=== PATIENT | female | born 1970 | race Caucasian/White ===

== ENCOUNTER 2017-05-21 18:04 | Emergency (ER) | payer OTHER ==
[2017-05-21] MEDS: IBUPROFEN 600 MG TAB PO (19:58)
== END 2017-05-21 20:43 | disposition home or self-care (01) ==
LOC: FTE 18:04
DX: M79.602 Pain in left arm (principal)
CPT/HCPCS: 73060; 99283-25

== ENCOUNTER 2017-06-09 04:04 | Emergency (ER) | payer OTHER | END 2017-06-09 07:25 | disposition home or self-care (01) | LOC: FTE 04:04 | DX: H61.21 Impacted cerumen, right ear (principal) | CPT/HCPCS: 99283 ==

== ENCOUNTER 2018-05-29 16:14 | Emergency (ER) | payer OTHER ==
[2018-05-29 18:11] LABS: ADD MAN DIFF? NO
[2018-05-29] MEDS: ONDANSETRON 4 MG INJ IV (18:11)
[2018-05-29] MEDS: morphine 4 MG/ML VIAL IV (18:11)
[2018-05-29] MEDS: SOD CHLORIDE 0.9% 1,000 ML IV (18:11)
[2018-05-29 18:14] LABS: ABNORMAL IP MESSAGE 1; BASOPHILS % 0.3 % (0.0-2.0); HEMATOCRIT 39.5 % (37.0-47.0); HEMOGLOBIN 13.9 g/dl (12.0-16.0); LYMPHOCYTES # 0.4 10^3/ul (0.8-2.9); LYMPHOCYTES % 2.9 % (15.0-51.0); MEAN CORPUSCULAR HEMOGLOBIN 31.7 pg (29.0-33.0); MEAN CORPUSCULAR HGB CONC 35.2 g/dl (32.0-37.0); MONOCYTE # 0.5 10^3/ul (0.3-0.9); MONOCYTES % 3.3 % (0.0-11.0); NEUTROPHIL # 13.1 10^3/ul (1.6-7.5); NEUTROPHILS % 93.1 % (39.0-77.0); PLATELET COUNT 285 10^3/UL (140-415); RED BLOOD COUNT 4.39 10^6/ul (4.20-5.40); RED CELL DISTRIBUTION WIDTH 11.9 % (11.5-14.5)
[2018-05-29] MEDS: HYDROmorphONE 0.5 MG/0.5 ML SYG IV (18:31)
[2018-05-29 18:33] LABS: POSITIVE DIFF @See below
[2018-05-29 18:35] LABS: ALANINE AMINOTRANSFERASE 16 IU/L (13-69); ALBUMIN/GLOBULIN RATIO 1.35; ALKALINE PHOSPHATASE 54 IU/L (42-121); ANION GAP 12 (5-13); ASPARTATE AMINO TRANSFERASE 26 IU/L (15-46); BILIRUBIN,INDIRECT 1.3 mg/dl (0-1.1); BILIRUBIN,TOTAL 1.3 mg/dl (0.2-1.3); BLOOD UREA NITROGEN 14 mg/dl (7-20); CALCIUM 9.9 mg/dl (8.4-10.2); CARBON DIOXIDE 25 mmol/L (21-31); CHLORIDE 107 mmol/L (97-110); CREATININE 0.58 mg/dl (0.44-1.00); Estimated GFR > 60 mL/min (>60); GLUCOSE 127 mg/dl (70-220); LIPASE 52 U/L (23-300); SODIUM 144 mmol/L (135-144); TOTAL PROTEIN 8.7 g/dl (6.1-8.1)
[2018-05-29 19:01] LABS: ADD UMIC YES; UR AMORPHOUS CRYSTAL MANY /HPF (NONE SEEN); UR ASCORBIC ACID NEGATIVE (NEGATIVE); UR BACTERIA FEW /HPF (NONE SEEN); UR BILIRUBIN (Dip) NEGATIVE (NEGATIVE); UR BLOOD (Dip) 2+ mg/dL (NEGATIVE); UR CLARITY CLOUDY (CLEAR); UR COLOR YELLOW (YELLOW); UR GLUCOSE (Dip) NEGATIVE (NEGATIVE); UR KETONES (Dip) 2+ mg/dL (NEGATIVE); UR LEUKOCYTE ESTERASE (Dip) 1+ Leu/ul (NEGATIVE); UR NITRITE (Dip) NEGATIVE (NEGATIVE); UR RBC 77 /HPF (0-5); UR SPECIFIC GRAVITY (Dip) 1.013 (1.003-1.030); UR SQUAMOUS EPITHELIAL CELL FEW /HPF (FEW); UR TOTAL PROTEIN (Dip) NEGATIVE (NEGATIVE); UR UROBILINOGEN (Dip) NEGATIVE (NEGATIVE); UR WBC 10 /HPF (0-5)
[2018-05-29] MEDS: CEFTRIAXONE 1 GM/50 ML (PMX) 50 ML IVPB (19:47)
== END 2018-05-29 20:35 | disposition home or self-care (01) ==
LOC: E/R 16:14
DX: N20.0 Calculus of kidney (principal); R40.2252 Coma scale, best verbal response, oriented, at arrival to emergency department; R40.2362 Coma scale, best motor response, obeys commands, at arrival to emergency department; R40.2142 Coma scale, eyes open, spontaneous, at arrival to emergency department; N23 Unspecified renal colic
CPT/HCPCS: 36415; 74176; 80053; 81001; 83690; 84703; 85025; 87086; 93005; 96374; 96375; 99285-25

== ENCOUNTER 2018-09-30 22:16 | Emergency (ER) | payer OTHER ==
[2018-09-30 23:35] LABS: ADD UMIC YES; UR ASCORBIC ACID NEGATIVE (NEGATIVE); UR BILIRUBIN (Dip) NEGATIVE (NEGATIVE); UR BLOOD (Dip) 1+ mg/dL (NEGATIVE); UR CLARITY CLEAR (CLEAR); UR COLOR STRAW (YELLOW); UR GLUCOSE (Dip) NEGATIVE (NEGATIVE); UR KETONES (Dip) NEGATIVE (NEGATIVE); UR LEUKOCYTE ESTERASE (Dip) NEGATIVE Leu/ul (NEGATIVE); UR NITRITE (Dip) NEGATIVE (NEGATIVE); UR RBC 27 /HPF (0-5); UR SPECIFIC GRAVITY (Dip) 1.014 (1.003-1.030); UR TOTAL PROTEIN (Dip) NEGATIVE (NEGATIVE); UR UROBILINOGEN (Dip) NEGATIVE (NEGATIVE); UR WBC 2 /HPF (0-5)
== END 2018-10-01 00:31 | disposition home or self-care (01) ==
LOC: FTE 10-01 00:31
DX: K64.9 Unspecified hemorrhoids (principal)
CPT/HCPCS: 81001; 81025; 99284

== ENCOUNTER 2018-10-18 10:28 | Day surgery (SDC) | payer OTHER ==
[2018-10-18] MEDS ORDERED: IOHEXOL 300MG/ML 30 ML BTL (12:24)
[2018-10-18] MEDS ORDERED: PROPOFOL 100 ML (12:27)
[2018-10-18] MEDS ORDERED: LIDOCAINE 2% (SDV) 5 ML INJ (12:31)
[2018-10-18] MEDS ORDERED: FENTAnyl 50 MCG/ML VIAL (12:31)
[2018-10-18] MEDS ORDERED: ROCURONIUM 50 MG INJ (12:31)
[2018-10-18] MEDS ORDERED: CEFAZOLIN 1 GM INJ (12:59)
[2018-10-18] MEDS ORDERED: DEXAMETHASONE 4 MG/ML 5 ML INJ (13:04)
[2018-10-18] MEDS ORDERED: ONDANSETRON 4 MG INJ (13:04)
[2018-10-18] MEDS ORDERED: NEOSTIGMINE 3 MG/3 ML SYRINGE (13:43)
[2018-10-18] MEDS ORDERED: GLYCOPYRROLATE 0.4 MG INJ (13:43)
[2018-10-18] MEDS ORDERED: hydrALAzine 20 MG INJ IV (14:30)
[2018-10-18] MEDS ORDERED: HYDROCODONE/APAP (5/325) TAB PO (14:30)
[2018-10-18] MEDS ORDERED: OXYCODONE/ACETAMINOPHEN (5/325) TAB PO (14:30)
[2018-10-18] MEDS ORDERED: KETOROLAC 30 MG INJ IV (14:30)
[2018-10-18] MEDS ORDERED: EPHEDrine 25 MG/5 ML SYG IV (14:30)
[2018-10-18] MEDS ORDERED: LABETALOL HCL 20MG INJ IV (14:30)
[2018-10-18] MEDS ORDERED: ALBUTEROL 0.083% (NEB) 2.5 MG/3 ML AMP HHN (14:30)
[2018-10-18] MEDS ORDERED: DIPHENHYDRAMINE 50 MG INJ IV (14:30)
[2018-10-18] MEDS ORDERED: FENTAnyl 50 MCG/ML VIAL IV ×3 (14:30)
[2018-10-18] MEDS ORDERED: MEPERIDINE 25 MG INJ IV (14:30)
[2018-10-18] MEDS: OXYCODONE/ACETAMINOPHEN (5/325) TAB PO (14:32)
[2018-10-18] MEDS: ONDANSETRON 4 MG INJ IV (14:33)
== END 2018-10-18 15:40 | disposition home or self-care (01) ==
LOC: SDS 10:28
DX: N20.1 Calculus of ureter (principal); I10 Essential (primary) hypertension
CPT/HCPCS: 52356; 74430; 87086; 88300